=== PATIENT | male | born 1945 ===

== ENCOUNTER → 2020-10-30 | Outpatient (CLI) | payer MEDICARE | LOC: LAB FS 16:22 | PROVIDERS: ATTEND Pediatrics | DX: Z01.89 Encounter for other specified special examinations (principal) | CPT/HCPCS: 87070; 87205 ==

== ENCOUNTER → 2020-10-31 | Outpatient (CLI) | payer MEDICARE ==
[2020-10-31 15:58] LABS: COLOR,URINE YELLOW
[2020-10-31 15:59] LABS: BILIRUBIN,URINE NEGATIVE (NEGATIVE); CLARITY,URINE TURBID; GLUCOSE, URINE (UA) NEGATIVE (NEGATIVE); KETONES,URINE NEGATIVE (NEGATIVE); LEUKOCYTE ESTERASE ,URINE 2+ (NEGATIVE); NITRITE,URINE NEGATIVE (NEGATIVE); PH,URINE 5.5 (5-9); PROTEIN,URINE 2+ (NEGATIVE); WBC,URINE TNTC /HPF
== END ==
LOC: LAB FS 15:46
PROVIDERS: ATTEND Pediatrics
DX: R33.9 Retention of urine, unspecified (principal)
CPT/HCPCS: 81000; 87088